=== PATIENT | male | born 1940 | race Caucasian/White ===

== ENCOUNTER 2017-01-20 13:12 | Emergency (ER) | payer MEDICARE ==
[~2017-01-20] VITALS: Ht 177.8 cm; Wt 68.0 kg
[~2017-01-20 13:12] MED LIST: APIX2.5T PO; ASPI81CH CHEW; ATOR40TA16 PO; CARV6.25 PO; CILO100T PO; COLL30T TOP; COMMODE PAIL WI1 MIS; COZA50TA PO; DOCU1CAP39 PO; FURO20TA PO; GETGO ROLLING W1 MI1; HYDR50TA15 PO; IPRASOL NEB; LACT12LO4 TOPICAL; LEVA750T PO; MULT400T PO; OXYC1TAB63 PO; QUET1TAB7 PO; SSD1CRE TOPICAL; SYMB160A INH; TAMS0.4C4 PO; TEMA7.5C9 PO
[2017-01-20 13:16] VITALS: BP 169/73; PULSE 18; PULSE 67; RESP 18; TEMP 97.8; O2SAT 95
--- NOTE | 2017-01-20 13:31 | PD ---
Physical Exam Time Seen by Provider: 13:28 Narrative 76yo M sent for fluid on R lung. Sent by Dr. Davi Ellis. SOB x1week. Reports cough. Denies fever, vomiting. No acute distress in triage. Patient stable. Patient seen in triage. Awaiting bed placement. Data Data Last Documented VS Vital Signs Date Time Temp Pulse Resp B/P Pulse Ox O2 Delivery O2 Flow Rate FiO2 01/20/17 13:16 97.8 67 18 169/73 95 MDM Supervised Visit with MONSE: Carina Yadav Jan 20, 2017 13:31
== END 2017-01-20 16:12 | disposition left against medical advice (07) ==
LOC: NED 13:12
DX: R05 Cough (principal)
CPT/HCPCS: 99282